=== PATIENT | male | born 1975 | race American Indian/Alaskan Native ===

== ENCOUNTER 2019-01-01 10:03 | Emergency (ER) | payer BC ==
[2019-01-01 10:36] VITALS: BP 140/80
--- NOTE | 2019-01-01 13:48 | Cat Scan Report ---
CT HEAD WITHOUT CONTRAST: HISTORY: Pain. TECHNIQUE: Sequential 2.5mm CT images. COMPARISON: none. FINDINGS: Cerebral Parenchyma: Within normal limits. Cerebellum: Within normal limits. Brainstem: Within normal limits. Ventricles: Normal. Sella: Normal. Extra-axial spaces: Normal. Basal Cisterns: Normal. Intracranial Hemorrhage: None. Midline Shift: None. Calvarium: Normal. Sinuses: Normal. Mastoid Air Cells: Normal. Visualized Orbits: Normal. IMPRESSION: Cranial CT scan within normal limits.
--- NOTE | 2019-01-01 13:50 | Cat Scan Report ---
CT SCAN OF THE CERVICAL SPINE: HISTORY: Pain. TECHNIQUE: Contiguous 1.25 mm axial images of the cervical spine were obtained. Sagittal and coronal reformatted images. FINDINGS: There is normal alignment of the cervical spine. The body, pedicles and posterior ligaments appear normal. No evidence of fracture or subluxation is seen. Mild degenerative disc disease is identified at C4-5 and C5-6. The spinal canal appears normal. The prevertebral soft tissues appear normal. IMPRESSION: Mild cervical spondylosis. No acute process is noted.
--- NOTE | 2019-01-01 14:24 | Emergency Department Report ---
ED Neck Pain HPI Chief Complaint: Neck Pain/Injury Stated Complaint: SHOULDER/NECK/HEAD/EYE PAIN Time Seen by Provider: 01/01/19 13:18 Duration: 3 Days Neck Pain Location: Lateral Neck Severity: moderate Symptoms: Yes Pain with Movement, Yes Radiation to Left Upper Ext, Yes Numbness, No Radiation to Right Upper Ext, No Weakness, No Previous History Other History: Disposition has a history of chronic lower back pain. Patient states he had intense pain in the left neck which radiated into the side of his head and his arm 3 days ago. Patient saw a chiropractor but was told they were comfortable doing manipulation the patient just had some massage therapy to the back and neck. Patient states symptoms are worsening. Patient and his family have noticed some visible fasciculations of the muscles of the left trapezius. This occurs occasionally and is worse when he turns his head in certain directions. ED Review of Systems ROS: Stated complaint: SHOULDER/NECK/HEAD/EYE PAIN Other details as noted in HPI Comment: All other systems reviewed and negative ED Past Medical Hx - Past Medical History Previous Medical History?: No - Surgical History Past Surgical History?: Yes Additional Surgical History: left knee surgery. left hand surgery - Medications Home Medications: Home Medications Medication Instructions Recorded Confirmed Last Taken Type HYDROcodone/APAP 5-325 [[place] 1 each PO Q4HR PRN #12 tablet 01/01/19 Unknown Rx 5/325] Ibuprofen [Motrin] 800 mg PO Q8HR PRN #20 tablet 01/01/19 Unknown Rx methOCARBAMOL [Robaxin TAB] 500 mg PO Q6H PRN #15 tablet 01/01/19 Unknown Rx Neck Pain Exam - Exam General: Vital signs noted. No distress. Alert and acting appropriately. HEENT: No Facial Pain, No Scalp Tenderness, No Contusion, No Abrasion, No Laceration Neck Pain: Yes Left Paraspinal Tenderness, Yes Left Trapezius Tenderness, No Midline Tenderness, No Right Paraspinal Tenderness, No Right Trapezius Tenderness, No Pain with Rotation Right, No Pain with Rotation Left, No Pain with Extension, No Pain with Flexion, No pain with R Lateral Flexion, No Pain with L Lateral Flexion Chest: Yes Clear Lung Sounds, No Pain with Respirations Heart: Yes Regular, No Murmur Back: No Thoracic Tenderness, No Lumbar Tenderness Neuro: No Numbness, No Weakness, No Normal Reflexes, No Radicular Deficits ED Course Vital Signs 01/01/19 10:35 Temperature 98.1 F Pulse Rate 83 Respiratory 18 Rate Blood Pressure 140/80 [Right] O2 Sat by Pulse 98 Oximetry ED Medical Decision Making - Radiology Data CT of the head and neck show no acute process except for some mild early arthritic changes to the neck. - Medical Decision Making Patient's likely with some disc herniation with cervical radiculopathy. Patient to be discharged home follow with orthopedics. Critical care attestation.: If time is entered above; I have spent that time in minutes in the direct care of this critically ill patient, excluding procedure time. ED Disposition Clinical Impression: Cervical radiculopathy Disposition: DC-01 TO HOME OR SELFCARE Is pt being admited?: No Does the pt Need Aspirin: No Condition: Stable Instructions: Cervical Radiculopathy (ED) Referrals: CORNELIUS KAN MD [Staff Physician] - 3-5 Days Time of Disposition: 14:24
== END 2019-01-01 14:38 | disposition home or self-care (01) ==
LOC: ED 10:03
DX: M54.12 Radiculopathy, cervical region (principal)
CPT/HCPCS: 70450; 72125; 99283